=== PATIENT | male | born 1945 | race Caucasian/White ===

== ENCOUNTER 2016-09-12 18:28 | Observation (INO) | payer MEDICARE ==
[~2016-09-12] VITALS: Ht 172.7 cm; Wt 100.0 kg
[~2016-09-12 18:28] MED LIST: ALBU17I INH; ASPI81TA82 PO; ATOR40TA PO; COQ-100C2 PO; D31000TA PO; DIOV40TA PO; FENO50TA PO; IPRA.5I NEB; METO50TA PO; MULT-65 PO; OMEP20TA PO; PANT40IN3 PO; POTA550T4 PO; TRAD5TAB PO; TRAZ150T2 PO; VITACAP7 PO
[2016-09-12 18:29] VITALS: BP 170/99; PULSE 103; RESP 20; TEMP 98.5; O2SAT 98
--- NOTE | 2016-09-12 18:35 | PD ---
Physical Exam Date Seen by Provider: September 12, 2016 Time Seen by Provider: 18:32 Narrative 70 year old male presents to the emergency department for evaluation of elevated HR that occurs most often in the morning. He states that today at work he had 2 pre-syncopal episodes with associated dizziness. He reports palpitations with episodes. Patient's towel distributor is Dr. Andersen. Vital signs reviewed. Patient awaiting bed placement. Data Data Last Documented VS Vital Signs Date Time Temp Pulse Resp B/P Pulse Ox O2 Delivery O2 Flow Rate FiO2 09/12/16 18:29 98.5 103 20 170/99 98 MDM Supervised Visit with GT: Simi Pandey September 12, 2016 18:35
[2016-09-12] MEDS ORDERED: ADENOSINE IV SOLN 3 MG/ML 2 ML VIAL ONE ×2 (18:50→18:51)
[2016-09-12 18:51] VITALS: BP 104/76; PULSE 202; RESP 20; O2SAT 98
[2016-09-12] MEDS ORDERED: SODIUM CHLOR 0.9% 1000 ML INJ 1,000 ML IV ONE (19:15)
[2016-09-12 19:37] LABS: AUTOMATED NEUTROPHIL # 6.6 TH/MM3 (1.8-7.7); BASOPHIL % 0.5 % (0.0-2.0); EOSINOPHIL % 0.5 % (0.0-4.0); HEMATOCRIT 42.9 % (39.0-51.0); LYMPH % 13.9 % (9.0-44.0); LYMPHOCYTE # 1.2 TH/MM3 (1.0-4.8); MEAN CORPUSCULAR HEMOGLOBIN 23.6 PG (27.0-34.0); MEAN CORPUSCULAR HGB CONC 32.4 % (32.0-36.0); MONO % 9.4 % (0.0-8.0); NEUT % 75.7 % (16.0-70.0); PLATELET COUNT 243 TH/MM3 (150-450); RED BLOOD COUNT 5.87 MIL/MM3 (4.50-5.90); RED CELL DISTRIBUTION WIDTH 16.7 % (11.6-17.2); WHITE BLOOD COUNT 8.8 TH/MM3 (4.0-11.0)
[2016-09-12 19:43] LABS: HEMO FLAGS AUTO DIFF
[2016-09-12 19:46] LABS: BLOOD, URINE NEG (NEG); GLUCOSE,URINE NEG (NEG); KETONE, URINE NEG (NEG); NITRITE,URINE NEG (NEG); PH, URINE 7.5 (5.0-8.5)
--- NOTE | 2016-09-12 19:46 | PD ---
HPI Chief Complaint: Cardiac Complaint Time Seen by Provider: 19:09 Travel History International Travel<30 days: No Contact w/Intl Traveler<30days: No Traveled to known affect area: No History of Present Illness HPI 70-year-old male complains of Dizziness lightheadedness sweating and heart racing. Patient states the symptoms started this afternoon. Patient states that he had a near syncopal episode during the episode. Patient states that he was brought to the emergency room by his daughter and feeling better upon arrival. Patient denies any chest pain or shortness of breath. Patient denies any headache. Patient denies any visual change. Patient denies any neck pain. Patient denies abdominal pain. Patient denies any nausea vomiting diarrhea. Patient denies any fever chills. Patient denies any coughing congestion. Patient has history intermittent heart racing for the past 6 months. Patient states that usually the tachycardia lasted about 15-20 minutes and resolved completely. Patient states that the tachycardia started solution with exertion. Patient was seen by Dr. Andersen, policy advisor. Patient was advised that he had SVT. Patient also has history hypertension. Patient was given Valsartan and verapamil previously. Patient was advised to stop taking verapamil. Patient was advised to started on metoprolol 50 mg twice a day. Patient also has history of diabetes, dyslipidemia, COPD and possible atrial fibrillation with RVR. Patient denies any previous history of thyroid problem. PFSH Past Medical History Heart Rhythm Problems: Yes Cardiovascular Problems: Yes High Cholesterol: Yes Diabetes: Yes Patient Takes Glucophage: No Diminished Hearing: No Hepatitis: No Hiatal Hernia: No Hypertension: Yes Immune Disorder: No Medical other: Yes (ELEVATED CHOLESTEROL) Musculoskeletal: No Neurologic: No Respiratory: Yes (COPD) Immunizations Current: No Thyroid Disease: No Triglycerides - High: Yes Tetanus Vaccination: > 5 Years Influenza Vaccination: No Past Surgical History Cholecystectomy: Yes (DONE 2 WEEKS AGO) Genitourinary Surgery: Yes (BILAT INGUNAL HERNIAS) Neurologic Surgery: Yes (BLOOD CLOT UNDER SKULL, CRANIOTOMY) Oral Surgery: Yes (TONSILLECTOMY) Pacemaker: No Other Surgery: Yes Social History Alcohol Use: Yes (RARE) Tobacco Use: No (QUIT) Substance Use: No Allergies-Medications (Allergen,Severity, Reaction): Coded Allergies: No Known Allergies (Verified , 09/12/16) Reported Meds & Prescriptions Reported Meds & Active Scripts Active Reported B Complex (B-Complex Vitamins) 1 Cap 1 Cap PO DAILY Vitamin D3 (Cholecalciferol) 1,000 Unit Tab 1,000 Units PO DAILY Coq-10 (Coenzyme Q10 (Ubidecarenone)) 100 Mg Cap 100 Mg PO HS Fenofibrate 145 Mg Tab 145 Mg PO DAILY Ipratropium Neb (Ipratropium [place]) 0.5 Mg/2.5 Ml Amp 0.5 Mg NEB BID NEB PRN Metoprolol Tartrate 50 Mg Tab 50 Mg PO BID Multi Vitamin (Multiple Vitamin) 1 Tab Tab 1 Tab PO HS Valsartan 40 Mg Tab 40 Mg PO HS Tradjenta (Linagliptin) 5 Mg Tab 5 Mg PO DAILY Metformin (Metformin HCl) 1,000 Mg Tab 1,000 Mg PO BIDPC With meals Omeprazole 20 Mg Tab 20 Mg PO DAILY Potassium Gluconate 550 Mg Tab 550 Mg PO DAILY Trazodone (Trazodone HCl) 150 Mg Tab 75 Mg PO HS Atorvastatin (Atorvastatin Calcium) 40 Mg Tab 40 Mg PO HS Aspirin DR (Aspirin) 81 Mg Tabdr 81 Mg PO DAILY Review of Systems General / Constitutional: No: Fever Eyes: No: Visual changes HENT: Positive: Lightheadedness, No: Headaches Cardiovascular: Positive: Tachycardia, No: Chest Pain or Discomfort Respiratory: No: Shortness of Breath Gastrointestinal: No: Abdominal Pain Genitourinary: No: Dysuria Musculoskeletal: No: Pain Skin: No Rash Neurologic: No: Weakness Psychiatric: No: Depression Endocrine: No: Polydipsia Hematologic/Lymphatic: No: Easy Bruising Physical Exam Narrative GENERAL: Well-nourished, well-developed patient. SKIN: Focused skin assessment warm/dry. HEAD: Normocephalic. EYES: No scleral icterus. No injection or drainage. NECK: Supple, trachea midline. No JVD or lymphadenopathy. CARDIOVASCULAR: Tachycardia rate and rhythm without murmurs, gallops, or rubs. RESPIRATORY: Breath sounds equal bilaterally. No accessory muscle use. GASTROINTESTINAL: Abdomen soft, non-tender, nondistended. MUSCULOSKELETAL: No cyanosis, or edema. BACK: Nontender without obvious deformity. No CVA tenderness. Neurologic exam normal. Data Data Last Documented VS Vital Signs Date Time Temp Pulse Resp B/P Pulse Ox O2 Delivery O2 Flow Rate FiO2 09/12/16 18:51 202 20 104/76 98 Room Air 09/12/16 18:29 98.5 Orders Adenosine Inj (Adenocard Inj) (09/12/16 18:50) Adenosine Inj (Adenocard Inj) (09/12/16 18:51) Electrocardiogram (09/12/16 19:09) Complete Blood Count With Diff (09/12/16 19:09) Comprehensive Metabolic Panel (09/12/16 19:09) Creatine Kinase (Cpk) (09/12/16:09) Troponin I (09/12/16:) B-Type Natriuretic Peptide (09/12/16:) Prothrombin Time / Inr (Pt) (09/12/16:) Act Partial Throm Time (Ptt) (09/12/16:) Urinalysis - C+S If Indicated (09/12/16:) Thyroid Stimulating Hormone (09/12/16:) Chest, Single Ap (09/12/16:09) Iv Access Insert/Monitor (09/12/16:) Ecg Monitoring (09/12/16:) Oximetry (09/12/16:) Sodium Chlor 0.9% 1000 Ml Inj (Ns 1000 M (09/12/16 19:15) Labs Laboratory Tests Test 09/12/16 19:15 White Blood Count 8.8 TH/MM3 Red Blood Count 5.87 MIL/MM3 Hemoglobin 13.9 GM/DL Hematocrit 42.9 % Mean Corpuscular Volume 73.0 FL Mean Corpuscular Hemoglobin 23.6 PG Mean Corpuscular Hemoglobin 32.4 % Concent Red Cell Distribution Width 16.7 % Platelet Count 243 TH/MM3 Mean Platelet Volume 7.9 FL Neutrophils (%) (Auto) 75.7 % Lymphocytes (%) (Auto) 13.9 % Monocytes (%) (Auto) 9.4 % Eosinophils (%) (Auto) 0.5 % Basophils (%) (Auto) 0.5 % Neutrophils # (Auto) 6.6 TH/MM3 Lymphocytes # (Auto) 1.2 TH/MM3 Monocytes # (Auto) 0.8 TH/MM3 Eosinophils # (Auto) 0.0 TH/MM3 Basophils # (Auto) 0.0 TH/MM3 CBC Comment AUTO DIFF Differential Comment AUTO DIFF CONFIRMED Platelet Estimate NORMAL Platelet Morphology Comment NORMAL Prothrombin Time 11.4 SEC Prothromb Time International 1.0 RATIO Ratio Activated Partial 25.3 SEC Thromboplast Time Urine Color STRAW Urine Turbidity CLEAR Urine pH 7.5 Urine Specific [place] 1.003 Urine Protein TRACE mg/dL Urine Glucose (UA) NEG mg/dL Urine Ketones NEG mg/dL Urine Occult Blood NEG Urine Nitrite NEG Urine Bilirubin NEG Urine Urobilinogen LESS THAN 2.0 MG/DL Urine Leukocyte Esterase NEG Urine RBC 9 /hpf Urine WBC 2 /hpf Microscopic Urinalysis Comment CULT NOT INDICATED Sodium Level 141 MEQ/L Potassium Level 3.9 MEQ/L Chloride Level 103 MEQ/L Carbon Dioxide Level 29.0 MEQ/L Anion Gap 9 MEQ/L Blood Urea Nitrogen 14 MG/DL Creatinine 1.08 MG/DL Estimat Glomerular Filtration 68 ML/MIN Rate Random Glucose 135 MG/DL Calcium Level 9.0 MG/DL Total Bilirubin 0.3 MG/DL Aspartate Amino Transf 23 U/L (AST/SGOT) Alanine Aminotransferase 36 U/L (ALT/SGPT) Alkaline Phosphatase 40 U/L Total Creatine Kinase 85 U/L Troponin I 0.03 NG/ML B-Type Natriuretic Peptide 31 PG/ML Total Protein 6.9 GM/DL Albumin 3.5 GM/DL Thyroid Stimulating Hormone 1.070 uIU/ML 3rd [facility] Medical Decision Making Medical Screen Exam Complete: Yes Emergency Medical Condition: Yes Interpretation(s) original EKG shows SVT rate 204. Repeat EKG after carotid massage maneuver shows sinus tachycardia rate 101. Nonspecific ST-T wave change. 20:09 PM. Last Impressions Chest X-Ray 09/12/16 5269 Signed Impressions: Service Date/Time: Monday, September 12, 2016 19:38 - CONCLUSION: No acute disease. Theo Panchal MD 2008 PM. CBC within normal limit. UA is negative. 2049 p.m. CMP within normal limit. Cardiac enzymes are normal. Differential Diagnosis Differential diagnosis including SVT, V. tach, atrial fibrillation with RVR, atrial flutter with RVR, PVCs, PACs. Narrative Course 70-year-old male with tachycardia, near syncope, dizziness, diaphoresis. History of recurrent SVT in the past. patient is on metoprolol 50 mg twice a day. Carotid massage maneuver done at bedside converted patient back to sinus rhythm. I spoke with policy advisor on-call for [facility] today, Dr. Minor, advised admission and consult Dr. Andersen in a.m. Continue with all medications until seen by Dr. Andersen. Diagnosis Primary Impression: SVT (supraventricular tachycardia) Maurilio Dubois MD September 12, 2016 19:45
[2016-09-12 19:47] LABS: COMMENT (UR) CULT NOT INDICATED; CULTURE IF INDICATED CULT NOT INDICATED; URINE COLOR STRAW (YELLW/STRAW)
[2016-09-12 19:51] LABS: APTT (PATIENT) 25.3 SEC (24.3-30.1); PROTHROMBIN TIME - PATIENT 11.4 SEC (9.8-11.6)
--- NOTE | 2016-09-12 19:53 | RADRPT ---
EXAM DATE/TIME: 09/12/2016 19:38 [place] COMPARISON: CHEST SINGLE AP, February 16, 2016, 11:12. INDICATIONS : Shortness of breath. MEDICAL HISTORY : Hypertension. Diabetes mellitus type II. Chronic obstructive pulmonary disease. SURGICAL HISTORY : None. ENCOUNTER: Initial ACUITY: 1 day PAIN SCORE: 0/10 LOCATION: Bilateral chest FINDINGS: A single view of the chest demonstrates the lungs to be symmetrically aerated without evidence of mas s, infiltrate or effusion. The cardiomediastinal contours are unremarkable. Osseous structures are intact. CONCLUSION: No acute disease. Theo Panchal MD on September 12, 2016 at 19:50 Board Certified Radiologist. This report was verified electronically.
[2016-09-12] MEDS ORDERED: POTA550T2 PO (19:59)
[2016-09-12] MEDS ORDERED: MULT-135 PO (19:59)
[2016-09-12] MEDS ORDERED: ASPI81TA5 PO (19:59)
[2016-09-12] MEDS ORDERED: METF1000 PO (19:59)
[2016-09-12] MEDS ORDERED: VALS1TAB63 PO (19:59)
[2016-09-12] MEDS ORDERED: ATOR40TA16 PO (19:59)
[2016-09-12] MEDS ORDERED: TRAD5TAB PO (19:59)
[2016-09-12] MEDS ORDERED: OMEP20TA PO (19:59)
[2016-09-12] MEDS ORDERED: TRAZ150T75 PO (19:59)
[2016-09-12] MEDS ORDERED: COQ-100C2 PO (20:03)
[2016-09-12] MEDS ORDERED: METO50TA PO (20:03)
[2016-09-12] MEDS ORDERED: IPRA0.02 NEB (20:03)
[2016-09-12] MEDS ORDERED: VITA100018 PO (20:03)
[2016-09-12] MEDS ORDERED: VITACAP7 PO (20:03)
[2016-09-12] MEDS ORDERED: FENO145T2 PO (20:03)
[2016-09-12 20:14] LABS: ALKALINE PHOSPHATASE 40 U/L (45-117); ALT (GPT) 36 U/L (12-78); ANION GAP 9 MEQ/L (5-15); AST (GOT) 23 U/L (15-37); BLOOD UREA NITROGEN 14 MG/DL (7-18); CHLORIDE 103 MEQ/L (98-107); CREATINE KINASE 85 U/L (39-308); GLOMERULAR FILTRATION RATE 68 ML/MIN (>89); POTASSIUM 3.9 MEQ/L (3.5-5.1); SODIUM (NA) 141 MEQ/L (136-145); TOTAL BILIRUBIN ADULT 0.3 MG/DL (0.2-1.0)
[2016-09-12 20:15] LABS: PLATELET ESTIMATE SMEAR NORMAL (NORMAL); PLATELET MORPHOLOGY NORMAL (NORMAL); SCAN/DIFF AUTO DIFF CONFIRMED
[2016-09-12 21:09] VITALS: O2SAT 98
[2016-09-12] MEDS ORDERED: SODIUM CHLORIDE 0.9% FLUSH 10 ML FLUSH IV FLUSH PRN (21:15)
[2016-09-12] MEDS ORDERED: MAGNESIUM HYDROXIDE SUSP 30 ML CUP PO PRN (21:15)
[2016-09-12] MEDS ORDERED: ACETAMINOPHEN 325 MG TAB PO PRN ×2 (21:15)
[2016-09-12] MEDS ORDERED: SODIUM CHLORIDE 0.9% FLUSH 10 ML FLUSH IVF PRN (21:15)
[2016-09-12] MEDS ORDERED: ONDANSETRON HCL 4 MG/2 ML VIAL IV PRN (21:15)
[2016-09-12] MEDS ORDERED: ATORVASTATIN 40 MG TAB PO SCH (21:15)
[2016-09-12] MEDS ORDERED: NALOXONE HCL 0.4 MG/ML AMP IV PRN (21:15)
[2016-09-12] MEDS ORDERED: traZODone HCL 50 MG TAB PO SCH (21:15)
[2016-09-12] MEDS ORDERED: ONDANSETRON HCL 4 MG/2 ML VIAL IVP PRN (21:15)
[2016-09-12] MEDS ORDERED: TEMAZEPAM 15 MG CAP PO PRN (21:15)
[2016-09-12] MEDS ORDERED: METOPROLOL TARTRATE 50 MG TAB PO ONE (21:30)
[2016-09-12 22:04] VITALS: BP 146/79; PULSE 74; RESP 18; O2SAT 98
[2016-09-12] MEDS: 1/2 NS + KCL 20 MEQ INJ 1,000 ML IV SCH (23:02)
[2016-09-13] VITALS: BP 139/78; PULSE 80; RESP 20; TEMP 97.3; O2SAT 95
[2016-09-13 00:33] VITALS: PULSE 72
[2016-09-13 04:00] VITALS: BP 111/61; PULSE 66; RESP 18; TEMP 97.5; O2SAT 96
[2016-09-13 06:28] LABS: BASOPHIL # 0.1 TH/MM3 (0-0.2); BASOPHIL % 0.7 % (0.0-2.0); EOSINOPHIL # 0.2 TH/MM3 (0-0.4); EOSINOPHIL % 2.1 % (0.0-4.0); HEMATOCRIT 37.1 % (39.0-51.0); LYMPH % 26.2 % (9.0-44.0); LYMPHOCYTE # 2.1 TH/MM3 (1.0-4.8); MEAN CELL VOLUME 72.8 FL (80.0-100.0); MEAN CORPUSCULAR HEMOGLOBIN 23.6 PG (27.0-34.0); MEAN CORPUSCULAR HGB CONC 32.4 % (32.0-36.0); MONO % 10.2 % (0.0-8.0); NEUT % 60.8 % (16.0-70.0); PLATELET COUNT 185 TH/MM3 (150-450); RED CELL DISTRIBUTION WIDTH 16.8 % (11.6-17.2); WHITE BLOOD COUNT 8.1 TH/MM3 (4.0-11.0)
[2016-09-13 06:36] LABS: HEMO FLAGS AUTO DIFF
[2016-09-13 06:51] LABS: BICARBONATE 28.2 MEQ/L (21.0-32.0); MAGNESIUM 1.7 MG/DL (1.5-2.5); POTASSIUM 3.2 MEQ/L (3.5-5.1)
[2016-09-13] MEDS ORDERED: INSULIN ASPART SUPPLEMENTAL SCALE SQ SCH (07:00)
[2016-09-13 07:47] VITALS: O2SAT 96
[2016-09-13 08:00] VITALS: BP 156/90; PULSE 71; RESP 20; TEMP 97.9; O2SAT 95
[2016-09-13 08:59] LABS: SCAN/DIFF AUTO DIFF CONFIRMED
[2016-09-13] MEDS ORDERED: SODIUM CHLORIDE 0.9% FLUSH 10 ML FLUSH IV FLUSH SCH ×2 (09:00)
[2016-09-13] MEDS ORDERED: CHOLECALCIFEROL (VIT D3) 1000 UNIT TAB PO SCH (09:00)
[2016-09-13] MEDS ORDERED: ASPIRIN EC 81 MG TABEC PO SCH (09:00)
[2016-09-13] MEDS ORDERED: PANTOPRAZOLE SOD 20 MG DELAYED RELEASE TAB PO SCH (09:00)
[2016-09-13] MEDS ORDERED: METOPROLOL TARTRATE 50 MG TAB PO SCH (09:00)
[2016-09-13] MEDS ORDERED: metFORMIN HCL 500 MG TAB PO SCH (09:00)
[2016-09-13] MEDS ORDERED: FENOFIBRATE 145 MG TAB PO SCH (09:00)
[2016-09-13] MEDS: 1/2 NS + KCL 20 MEQ INJ 1,000 ML IV SCH (09:14)
--- NOTE | 2016-09-13 09:21 | HHI.HP ---
HPI Service [facility] Hospitalists Primary Care Physician Benjie Mcnamara MD Admission Diagnosis SVT. Resolved. Chief Complaint: Palpitations, dizziness. Travel History International Travel<30 Days: No Contact w/Intl Traveler <30 Da: No Traveled to Known Affected Are: No History of Present Illness Mr. Velazquez is a 70 y/o male with COPD, diabetes, HTN, hyperlipidemia and SVT who presented to the ED at [facility] on 09/12/16 with complaints of feeling weak and dizzy with elevated HR. He reports that these were the same symptoms he had in 02/2016 when he was previously hospitalized. At that time he was seen by Cardiology and it was felt that pt was in SVT and his medications were changed from oral Cardizem to Metoprolol 50mg Q12H and his HR remained stable. 2D echo ( 02/17/2016) noted wall thickness was normal, estimated EF 55% to 65%. He reports that since that hospitalization he has had a few similar episodes where he gets dizzy and weak with palpitations. Typically he will sit a rest for about 15 minutes and the symptoms resolve. Yesterday he had two episodes within 30 minutes which prompted him to come to the ED for further evaluation. His original EKG shows SVT at a rate 204. Repeat EKG after carotid massage maneuver shows sinus tachycardia rate [address]-T wave change. Pt has been in NSR since the ED. No reported cough, SOB, congestion, fevers or chills. Denies any abd pain, nausea/vomiting, constipation, or melena. Review of Systems Constitutional: COMPLAINS OF: Dizziness, DENIES: Fever, Chills Eyes: DENIES: Vision loss Ears, nose, mouth, throat: DENIES: Hearing loss Respiratory: DENIES: Cough, Shortness of breath Cardiovascular: COMPLAINS OF: Palpitations, DENIES: Chest pain, Dyspnea on Exertion, Lower Extremity Edema Gastrointestinal: DENIES: Abdominal pain, Diarrhea, Nausea Genitourinary: DENIES: Hematuria, Dysuria Integumentary: DENIES: Rash Neurologic: DENIES: Headache Psychiatric: DENIES: Confusion Past Family Social History Past Medical History HTN Sinus tachycardia Hx of syncope and abnormal tilt table test Hyperlipidemia COPD Diabetes mellitus GERD CKD Depression Hx of tobacco use Hx of intracranial bleeding 2D echo (2012) - Normal systolic function with EF 55-60% - PA peak pressure 32mmHg Past Surgical History Craniotomy with clot evacuation Cholecystectomy Bilateral inguinal hernia repair Tonsillectomy Reported Medications B Complex (B-Complex Vitamins) 1 Cap 1 Cap PO DAILY Vitamin D3 (Cholecalciferol) 1,000 Unit Tab 1,000 Units PO DAILY Coq-10 (Coenzyme Q10 (Ubidecarenone)) 100 Mg Cap 100 Mg PO HS Fenofibrate 145 Mg Tab 145 Mg PO DAILY Ipratropium Neb (Ipratropium [place]) 0.5 Mg/2.5 Ml Amp 0.5 Mg NEB BID NEB PRN Metoprolol Tartrate 50 Mg Tab 50 Mg PO BID Multi Vitamin (Multiple Vitamin) 1 Tab Tab 1 Tab PO HS Valsartan 40 Mg Tab 40 Mg PO HS Tradjenta (Linagliptin) 5 Mg Tab 5 Mg PO DAILY Metformin (Metformin HCl) 1,000 Mg Tab 1,000 Mg PO BIDPC With meals Omeprazole 20 Mg Tab 20 Mg PO DAILY Potassium Gluconate 550 Mg Tab 550 Mg PO DAILY Trazodone (Trazodone HCl) 150 Mg Tab 75 Mg PO HS Atorvastatin (Atorvastatin Calcium) 40 Mg Tab 40 Mg PO HS Aspirin DR (Aspirin) 81 Mg Tabdr 81 Mg PO DAILY Allergies: Coded Allergies: No Known Allergies (Verified , 09/12/16) Family History Father from prostate cancer Mother for CHF Social History Hx of tobacco use, smoked 1-1.5ppd x 35 years, quit in 2004 Occasionally drinks alcohol Pt is , lives locally Worked for a car dealership Physical Exam Vital Signs Vital Signs Date Time Temp Pulse Resp B/P Pulse Ox O2 Delivery O2 Flow Rate FiO2 09/13/16 08:00 97.9 71 20 156/90 95 Automatic Cuff 09/13/16 04:00 97.5 66 18 111/61 96 09/13/16 00:33 72 09/13/16 00:00 97.3 80 20 139/78 95 09/12/16 22:04 74 18 146/79 98 Room Air 09/12/16 21:09 98 09/12/16 18:51 202 20 104/76 98 Room Air 09/12/16 18:29 98.5 103 20 170/99 98 Physical Exam GENERAL: This is a well-nourished, well-developed patient, in no apparent distress. HEENT: Atraumatic. Normocephalic. No temporal or scalp tenderness. No scleral icterus. Airway patent. NECK: Trachea midline, supple, nontender. CARDIO: Regular. RESP: CTA bilaterally. No wheezes, rales, or rhonchi. ABD: +BS, soft, non-tender, nondistended. EXT: Extremities without clubbing, cyanosis, or edema. NEURO: Awake and alert. Motor and sensory grossly within normal limits. Normal speech. Laboratory Laboratory Tests Test 09/12/16 09/13/16 19:15 05:38 White Blood Count 8.8 8.1 Red Blood Count 5.87 5.10 Hemoglobin 13.9 12.0 Hematocrit 42.9 37.1 Mean Corpuscular Volume 73.0 72.8 Mean Corpuscular Hemoglobin 23.6 23.6 Mean Corpuscular Hemoglobin 32.4 32.4 Concent Red Cell Distribution Width 16.7 16.8 Platelet Count 243 185 Mean Platelet Volume 7.9 7.7 Neutrophils (%) (Auto) 75.7 60.8 Lymphocytes (%) (Auto) 13.9 26.2 Monocytes (%) (Auto) 9.4 10.2 Eosinophils (%) (Auto) 0.5 2.1 Basophils (%) (Auto) 0.5 0.7 Neutrophils # (Auto) 6.6 5.0 Lymphocytes # (Auto) 1.2 2.1 Monocytes # (Auto) 0.8 0.8 Eosinophils # (Auto) 0.0 0.2 Basophils # (Auto) 0.0 0.1 CBC Comment AUTO DIFF AUTO DIFF Differential Comment AUTO DIFF AUTO DIFF CONFIRMED CONFIRMED Platelet Estimate NORMAL Platelet Morphology Comment NORMAL Prothrombin Time 11.4 Prothromb Time International 1.0 Ratio Activated Partial 25.3 Thromboplast Time Urine Color STRAW Urine Turbidity CLEAR Urine pH 7.5 Urine Specific [place] 1.003 Urine Protein TRACE Urine Glucose (UA) NEG Urine Ketones NEG Urine Occult Blood NEG Urine Nitrite NEG Urine Bilirubin NEG Urine Urobilinogen LESS THAN 2.0 Urine Leukocyte Esterase NEG Urine RBC 9 Urine WBC 2 Microscopic Urinalysis Comment CULT NOT INDICATED Sodium Level 141 143 Potassium Level 3.9 3.2 Chloride Level 103 106 Carbon Dioxide Level 29.0 28.2 Anion Gap 9 9 Blood Urea Nitrogen 14 14 Creatinine 1.08 0.79 Estimat Glomerular Filtration 68 97 Rate Random Glucose 135 104 Calcium Level 9.0 8.4 Total Bilirubin 0.3 Aspartate Amino Transf 23 (AST/SGOT) Alanine Aminotransferase 36 (ALT/SGPT) Alkaline Phosphatase 40 Total Creatine Kinase 85 Troponin I 0.03 B-Type Natriuretic Peptide 31 Total Protein 6.9 Albumin 3.5 Thyroid Stimulating Hormone 1.070 3rd Gen Magnesium Level 1.7 Result Diagram: 09/13/16 0538 09/13/16 0538 Imaging Last Impressions Chest X-Ray 09/12/16 1909 Signed Impressions: Service Date/Time: Monday, September 12, 2016 19:38 - CONCLUSION: No acute disease. Theo Panchal MD Septic Shock Reassessment Heart: Regular rate and rhythm Lungs: Clear Skin: Warm Assessment and Plan Problem List: (1) SVT (supraventricular tachycardia) Status: Acute Plan: - Pt is a 70 y/o male with hx of SVT who was admitted on 09/12/16 with episodic palpitations, dizziness and weakness. - His original EKG in the ED showed SVT at a rate 204. Repeat EKG after carotid massage showed sinus tachycardia rate [address]-T wave change. Pt has been in NSR since the ED. - Metoprolol 50mg Q12H was resumed in the ED. - Cardiology was consulted and pt was seen by Dr. Andersen this morning and he has recommended continuing Metoprolol 50mg po Q12H and adding Digoxin 0.25mg po daily. Cardiology has cleared the patient for discharge. - Pt will need to followup with [facility] Cardiology next week - He should minimize caffeine intake - Cardiology discussed Valsalva maneuvers and using cold water to break these prolonged episodes when they occur. - Pt will resume his other home medications. - Pt will followup with his PCP, Dr. Mcnamara, in 1 week (2) HTN (hypertension) Status: Chronic Plan: - Cont. home meds (3) Diabetes mellitus Status: Chronic Plan: - Cont. home meds (4) COPD (chronic obstructive pulmonary disease) Status: Chronic Plan: - Cont. home meds Assessment and Plan Patient examined. Assessment and plan formulated with Sadaf ALMAGUER I agree with the above. Problem Qualifiers (1) Diabetes mellitus: Sadaf Hooper September 13, 2016 09:21 Rick Zimmerman DO September 15, 2016 09:48
--- NOTE | 2016-09-13 09:28 | MB ---
cc: NATALIA BRITO MD DATE OF CONSULTATION: 09/13/2016 HISTORY OF PRESENT ILLNESS This is a 70-year-old gentleman who has a history of supraventricular tachycardia. He was at his job yesterday when he became lightheaded and dizzy. He noted that his heart rate was very rapid. This persisted for approximately 15-20 minutes and when ___ he then spontaneously converted back to regular sinus rhythm. His daughter insisted that he come to the hospital and at the hospital he apparently had a recurrence of his SVT, which then converted back to sinus rhythm. Since he was previously hospitalized last February for SVT, and at that time was put on metoprolol 50 mg twice daily. Since that time he has noted that he has had four episodes of what he feels are rapid heart beats, although they are very short-lived and otherwise asymptomatic. No chest pain has been present. Denies any shortness of breath and otherwise has felt well. He has been noncompliant with his medical regimen. PAST MEDICAL HISTORY Past medical history is otherwise significant for type 2 diabetes and hyperlipidemia. MEDICATIONS Medications at home have included: 1. Metoprolol 50 twice daily. 2. Fenofibrate 145 mg daily. 3. Metformin 1000 twice daily. 4. Tradjenta 5 mg daily. 5. Valsartan 40 mg at bedtime. 6. Potassium 10 mEq daily. 7. Atorvastatin 40 mg at bedtime. 8. Aspirin 81 mg daily. 9. Co Q-10. 10. Vitamin D. 11. Vitamin B. ALLERGIES None. SOCIAL HISTORY The patient rarely drinks alcohol. He is a former smoker but has quit for some years. He does not use recreational drugs. REVIEW OF SYSTEMS Otherwise unremarkable. PHYSICAL EXAMINATION GENERAL: He is awake and alert. He is in no distress. VITAL SIGNS: Blood pressure is 120/70, pulse is 70 and regular. NECK: There is no neck vein distension. Carotids are normal. LUNGS: Clear. CARDIOVASCULAR: Exam reveals regular rate and rhythm. No murmur. No gallop is noted. EXTREMITIES: Reveal no edema. Peripheral pulses are intact. LABORATORY DATA Laboratory examination reveals a normal BNP and troponin. H&H on admission was normal at 13.9, followup was 12.0, probably secondary to some dilution and also his potassium was somewhat low on second determination at 3.2, again probably secondary to dilution and his potassium is being replenished. ASSESSMENT The patient has had SVT which has since resolved. He is currently asymptomatic and his laboratory examination is otherwise unremarkable. In view of his recurrent episodes which seem to occur approximately once a month, I have suggested that we add 0.25 of digoxin once a day to his regimen and he is agreeable to this. We will otherwise continue his metoprolol. Will plan on seeing him back in clinic next week. We have again discussed Valsalva maneuvers as well as using cold water to see if he can break these episodes when they are prolonged. He notes that he is aware of those but did not try those yesterday and we have reinforced that education. MD BLESSING Love/LARISSA /7:45 AM /9:05 AM
[2016-09-13 09:30] VITALS: PULSE 65
[2016-09-13] MEDS ORDERED: DIGO0.259 PO (09:56)
--- NOTE | 2016-09-13 09:58 | HHI.DCPOC ---
Discharge Care Plan Diagnosis: (1) SVT (supraventricular tachycardia) (2) HTN (hypertension) (3) Diabetes mellitus (4) COPD (chronic obstructive pulmonary disease) Goals to Promote Your Health * To prevent worsening of your condition and complications * To maintain your health at the optimal level Directions to Meet Your Goals Take your medications as prescribed Follow your dietary instruction Follow activity as directed Keep your appointments as scheduled Take your immunizations and boosters as scheduled If your symptoms worsen call your PCP, if no PCP go to Urgent Care Center or Emergency Room Smoking is Dangerous to Your Health. Avoid second hand smoke Call the 24-hour hour crisis hotline for domestic abuse at Sadaf Hooper September 13, 2016 09:58 Rick Zimmerman DO September 15, 2016 09:48
[2016-09-13] MEDS ORDERED: DIGOXIN 0.25 MG TAB PO ONE (10:00)
[2016-09-13] MEDS ORDERED: POTASSIUM CHLORIDE 10 MEQ CAP PO SCH (12:00)
--- NOTE | 2016-09-13 16:20 | EKG ---
Date Performed: 09/12/2016 Time Performed: 18:49:03 PTAGE: 70 years EKG: SUPRAVENTRICULAR TACHYCARDIA WITH LVH, WHICH IS NEW COMPARED TO PREVIOUS ABNORMAL ECG PREVIOUS TRACING 02/16/2016 12.14.47 DOCTOR: Jim Johnston Interpretating Date/Time 09/13/2016 16:19:38
--- NOTE | 2016-09-13 16:20 | EKG ---
Date Performed: 09/12/2016 Time Performed: 18:55:12 PTAGE: 70 years EKG: SINUS TACHYCARDIA LEFT ANTERIOR FASCICULAR BLOCK LEFT VENTRICULAR HYPERTROPHY AND ST-T WEBSTER GE ABNORMAL ECG PREVIOUS TRACING : 09/12/2016 18.49 Compared to previous tracing, SVT has resolved. DOCTOR: Jim Johnston Interpretating Date/Time 09/13/2016 16:20:00
[2016-09-13] MEDS ORDERED: VALSARTAN 40 MG TAB PO SCH (21:00)
[2016-09-13] MEDS ORDERED: MULTIVITAMIN TAB PO SCH (21:00)
== END 2016-09-13 11:01 | disposition home or self-care (01) ==
LOC: NEPE 18:28 → OBSVTOIN 21:30 → NEDA 21:30 → INTOOBSV 21:30 → N04A 23:53
PROVIDERS: ADMIT Hospitalist; ATTEND Hospitalist
DX: I47.1 Supraventricular tachycardia (principal); R55 Syncope and collapse; R42 Dizziness and giddiness; R00.2 Palpitations; R61 Generalized hyperhidrosis; N18.9 Chronic kidney disease, unspecified; I12.9 Hypertensive chronic kidney disease with stage 1 through stage 4 chronic kidney disease, or unspecified chronic kidney disease; J44.9 Chronic obstructive pulmonary disease, unspecified; E78.5 Hyperlipidemia, unspecified; E11.22 Type 2 diabetes mellitus with diabetic chronic kidney disease; E78.00 Pure hypercholesterolemia, unspecified; Z79.84 Long term (current) use of oral hypoglycemic drugs; Z91.19 Patient's noncompliance with other medical treatment and regimen; Z87.891 Personal history of nicotine dependence; K21.9 Gastro-esophageal reflux disease without esophagitis; R94.31 Abnormal electrocardiogram [ECG] [EKG]
CPT/HCPCS: 71010; 80048; 80053; 81001; 82550; 82948; 83735; 83880; 84443; 84484; 85025; 85610; 85730; 93005; 99285; G0378; J0153; J7030

== ENCOUNTER 2017-07-19 21:30 | Emergency (ER) | payer MEDICARE ==
[~2017-07-19] VITALS: Ht 172.7 cm; Wt 101.6 kg
[~2017-07-19 21:30] MED LIST changes: -ALBU17I INH; -ASPI81TA82 PO; -ATOR40TA PO; +ATOR40TA16 PO; -D31000TA PO; +DIGO0.259 PO; -DIOV40TA PO; +ECASA81 PO; +FENO145T2 PO; -FENO50TA PO; -IPRA.5I NEB; +IPRA0.02 NEB; +METF1000 PO; +MULT-135 PO; -MULT-65 PO; -OMEP20TA PO; +OMEP20TA93 PO; -PANT40IN3 PO; +POTA550T2 PO; -POTA550T4 PO; -TRAZ150T2 PO; +TRAZ150T75 PO; +VALS1TAB63 PO; +VITA100018 PO
[2017-07-19 21:44] VITALS: BP 176/84; PULSE 74; RESP 14; TEMP 97.5; O2SAT 95
--- NOTE | 2017-07-19 22:16 | PD ---
HPI Chief Complaint: Fall Time Seen by Provider: 22:03 Travel History International Travel<30 days: No Contact w/Intl Traveler<30days: No Traveled to known affect area: No History of Present Illness HPI 71-year-old male complains of headache, neck pain, upper and low back pain. Patient fell backwards and hit the back of the head this evening. Patient denies loss of consciousness. Patient denies any visual change. Patient denies any nausea vomiting. Patient denies any memory problem. Family members state patient does not have any problem with repeating questions. Patient complains of mild aching pain to the neck area, moderate pain on upper back and mild low back pain. Patient denies any chest pain or shortness of breath. Patient denies abdominal pain. Patient denies any extremity injury. Patient denies any focal weakness or numbness of the extremity. PFSH Past Medical History Atrial Fibrillation: Yes Heart Rhythm Problems: Yes Cancer: No Cardiovascular Problems: Yes (A Fib, HTN) High Cholesterol: Yes COPD: Yes Diabetes: Yes (type 2 ) Patient Takes Glucophage: Yes Diminished Hearing: No Endocrine: Yes Genitourinary: No Hepatitis: No Hiatal Hernia: No Hypertension: Yes Immune Disorder: No Musculoskeletal: No Neurologic: No Psychiatric: No Respiratory: Yes (COPD, bronchitis) Immunizations Current: No Thyroid Disease: No Triglycerides - High: Yes Tetanus Vaccination: > 5 Years Influenza Vaccination: No Past Surgical History Cholecystectomy: Yes Genitourinary Surgery: Yes (BILAT INGUNAL HERNIAS) Neurologic Surgery: Yes (BLOOD CLOT UNDER SKULL, CRANIOTOMY) Oral Surgery: Yes (TONSILLECTOMY) Pacemaker: No Other Surgery: Yes Social History Alcohol Use: Yes (RARE) Tobacco Use: No Substance Use: No Allergies-Medications (Allergen,Severity, Reaction): Coded Allergies: No Known Allergies (Verified , 09/12/16) Reported Meds & Prescriptions Reported Meds & Active Scripts Active Digox (Digoxin) 0.25 Mg Tab 0.25 Mg PO DAILY Reported Coq-10 (Coenzyme Q10 (Ubidecarenone)) 50 Mg Cap 1 Tab PO DAILY Multi Vitamin Daily (Multiple Vitamin) 1 Tab Tab 1 Tab PO DAILY Potassium Gluconate 550 Mg (90 Mg) Tab 3 Tab PO BID Trazodone (Trazodone HCl) 50 Mg Tab 75 Mg PO HS Prednisone 10 Mg Tab 10 Mg PO BID Cefprozil 500 Mg Tab 500 Mg PO BID Diclofenac Sodium DR (Diclofenac Sodium) 75 Mg Tabdr 75 Mg PO BID B Complex (B-Complex Vitamins) 1 Cap 1 Cap PO DAILY Fenofibrate 145 Mg Tab 145 Mg PO DAILY Ipratropium Neb (Ipratropium [place]) 0.5 Mg/2.5 Ml Amp 0.5 Mg NEB BID NEB PRN Metoprolol Tartrate 50 Mg Tab 50 Mg PO BID Valsartan 40 Mg Tab 40 Mg PO HS Tradjenta (Linagliptin) 5 Mg Tab 5 Mg PO DAILY Metformin (Metformin HCl) 1,000 Mg Tab 1,000 Mg PO BIDPC With meals Omeprazole 20 Mg Tab 20 Mg PO DAILY Atorvastatin (Atorvastatin Calcium) 40 Mg Tab 40 Mg PO HS Aspirin DR (Aspirin) 81 Mg Tabdr 81 Mg PO DAILY Review of Systems General / Constitutional: No: Fever Eyes: No: Visual changes HENT: Positive: Headaches, Neck Pain Cardiovascular: No: Chest Pain or Discomfort Respiratory: No: Shortness of Breath Gastrointestinal: No: Abdominal Pain Genitourinary: No: Dysuria Musculoskeletal: No: Pain Skin: No Rash Neurologic: No: Weakness Psychiatric: No: Depression Endocrine: No: Polydipsia Hematologic/Lymphatic: No: Easy Bruising Physical Exam Narrative GENERAL: Well-nourished, well-developed patient. SKIN: Focused skin assessment warm/dry. HEAD: Normocephalic. Mild tenderness on palpation superior area of the scalp. EYES: No scleral icterus. No injection or drainage. Pupils 2 mm equal reactive. NECK: Supple, trachea midline. No JVD or lymphadenopathy. No tenderness on palpation of the neck area. CARDIOVASCULAR: Regular rate and rhythm without murmurs, gallops, or rubs. RESPIRATORY: Breath sounds equal bilaterally. No accessory muscle use. GASTROINTESTINAL: Abdomen soft, non-tender, nondistended. MUSCULOSKELETAL: No cyanosis, or edema. BACK: Mild tenderness on palpation paraspinal area of thoracic and lumbar spine , without obvious deformity. No CVA tenderness. Neurologic exam normal. Data Data Last Documented VS Vital Signs Date Time Temp Pulse Resp B/P (MAP) Pulse Ox O2 Delivery O2 Flow Rate FiO2 07/19/17 21:44 97.5 74 14 176/84 (114) [address] Brain W/O Iv Contrast(Rout) (07/19/17 22:09) Spine, Cervical - Ltd (Ap&Lat) (07/19/17 22:09) Spine, Thoracic-Ap/Lat/Sw(3vw) (07/19/17 22:09) Spine, Lumbar - Ltd (Ap & Lat) (07/19/17 22:09) MDM Medical Decision Making Medical Screen Exam Complete: Yes Emergency Medical Condition: Yes Differential Diagnosis Differential diagnosis including head injury, neck injury, back injury. Narrative Course 71-year-old male with headache, neck pain, upper low back pain. Status post fall this evening. Diagnosis Primary Impression: Closed head injury Qualified Codes: S09.90XA - Unspecified injury of head, initial encounter Additional Impressions: Cervical strain Qualified Codes: S16.1XXA - Strain of muscle, fascia and tendon at neck level , initial encounter Strain of thoracic spine Qualified Codes: S29.019A - Strain of muscle and tendon of unspecified wall of thorax, initial encounter Lumbar strain Qualified Codes: S39.012A - Strain of muscle, fascia and tendon of lower back , initial encounter Patient Instructions: General Instructions Additional Instructions: Head trauma instructions given. Take medication as needed for pain. Follow-up with orthopedist. Return if worse. Med/Other Pt SpecificInfo: Prescription(s) given Scripts Methocarbamol (Robaxin) 750 Mg Tab 750 MG PO QID for Muscle Spasm, #40 TAB 0 Refills Prov: Maurilio Dubois MD 07/19/17 Disposition: 01 DISCHARGE HOME Condition: Stable Maurilio Dubois MD Jul 19, 2017 22:16
[2017-07-19] MEDS ORDERED: PRED10 PO (22:17)
[2017-07-19] MEDS ORDERED: MULT1TAB46 PO (22:17)
[2017-07-19] MEDS ORDERED: POTA2.5T PO (22:17)
[2017-07-19] MEDS ORDERED: COQ-50CA2 PO (22:17)
[2017-07-19] MEDS ORDERED: DICL75TA PO (22:17)
[2017-07-19] MEDS ORDERED: CEFP500T PO (22:17)
[2017-07-19] MEDS ORDERED: TRAZ50TA12 PO (22:17)
--- NOTE | 2017-07-19 23:03 | RADRPT ---
EXAM DATE/TIME: 07/19/2017 22:29 [facility] COMPARISON: No previous studies available for comparison. INDICATIONS : Cervical spine pain post fall backwards from chair. MEDICAL HISTORY : Hypertension. Diabetes mellitus type II. Chronic obstructive pulmonary disease. SURGICAL HISTORY : None. ENCOUNTER: Initial ACUITY: 1 day PAIN SCORE: 5/10 LOCATION: Bilateral neck FINDINGS: No fracture or subluxation of the cervical spine. Vertebral bodies have normal height. No prevertebra l soft tissue swelling. Moderate degenerative disc disease with uncovertebral and facet osteoarthritis seen at C5/C6 and C6-C 7. CONCLUSION: No fracture or subluxation of the cervical spine. Theo Padilla MD on July 19, 2017 at 23:00 Board Certified Radiologist. This report was verified electronically.
--- NOTE | 2017-07-19 23:04 | RADRPT ---
EXAM DATE/TIME: 07/19/2017 22:29 [facility] COMPARISON: No previous studies available for comparison. INDICATIONS : Thoracic spine pain post fall backwards from chair. MEDICAL HISTORY : Hypertension. Diabetes mellitus type II. Chronic obstructive pulmonary disease. SURGICAL HISTORY : None. ENCOUNTER: Initial ACUITY: 1 day PAIN SCORE: 5/10 LOCATION: Bilateral thoracic spine FINDINGS: There is normal alignment of the thoracic vertebral bodies. Vertebral body height is maintained. No evidence of fracture or subluxation. Pedicles are intact at all levels. The paravertebral reflecti ons are not thickened. Mild multilevel disc space narrowing in the mid and lower thoracic spine. CONCLUSION: No evidence of acute fracture or subluxation of the thoracic spine. Theo Padilla MD on July 19, 2017 at 23:02 Board Certified Radiologist. This report was verified electronically.
--- NOTE | 2017-07-19 23:05 | RADRPT ---
EXAM DATE/TIME: 07/19/2017 22:29 [facility] COMPARISON: No previous studies available for comparison. INDICATIONS : Lumbar spine pain post fall backwards from chair. MEDICAL HISTORY : Hypertension. Diabetes mellitus type II. Chronic obstructive pulmonary disease. SURGICAL HISTORY : None. ENCOUNTER: Initial ACUITY: 1 day PAIN SCORE: 5/10 LOCATION: Bilateral lumbar spine FINDINGS: No fracture or subluxation of the lumbar spine. Vertebral bodies have normal height. Moderate disc space narrowing and bilateral facet osteoarthritis seen at L3/L4, L4/L5 and L5/S1. CONCLUSION: Intact lumbar spine. Moderate severity mid and lower lumbar degenerative changes as above. Theo Padilla MD on July 19, 2017 at 23:03 Board Certified Radiologist. This report was verified electronically.
[2017-07-19] MEDS ORDERED: ROBA750T PO (23:08)
[2017-07-19 23:16] VITALS: BP 162/78
--- NOTE | 2017-07-19 23:24 | RADRPT ---
EXAM DATE/TIME: 07/19/2017 22:43 [facility] COMPARISON: No previous studies available for comparison. INDICATIONS : Trauma. Fall. RADIATION DOSE: 58.33 CTDIvol (mGy) MEDICAL HISTORY : Diabetes mellitus type 2. Chronic obstructive pulmonary disease. Hypertension. SURGICAL HISTORY : Craniotomy. ENCOUNTER: Initial ACUITY: 1 day PAIN SCALE: 3/10 LOCATION: Bilateral occipital TECHNIQUE: Multiple contiguous axial images were obtained of the head. Using automated exposure control and adj ustment of the mA and/or kV according to patient size, radiation dose was kept as low as reasonably a chievable to obtain optimal diagnostic quality images. DICOM format image data is available electro nically for review and comparison. FINDINGS: CEREBRUM: The ventricles are normal for age. No evidence of midline shift, mass lesion, hemorrhage or acute in farction. No extra-axial fluid collections are seen. POSTERIOR FOSSA: The cerebellum and brainstem are intact. The 4th ventricle is midline. The cerebellopontine angle i s unremarkable. EXTRACRANIAL: The visualized portion of the orbits is intact. SKULL: The calvaria is intact. No evidence of skull fracture. CONCLUSION: Negative exam. Carlos Bhakta MD on July 19, 2017 at 23:22 Board Certified Radiologist. This report was verified electronically.
== END 2017-07-19 23:30 | disposition home or self-care (01) ==
LOC: PHEFT 21:30
DX: S09.90XA Unspecified injury of head, initial encounter (principal); S16.1XXA Strain of muscle, fascia and tendon at neck level, initial encounter; S29.019A Strain of muscle and tendon of unspecified wall of thorax, initial encounter; S39.012A Strain of muscle, fascia and tendon of lower back, initial encounter; W18.39XA Other fall on same level, initial encounter; I10 Essential (primary) hypertension; E11.9 Type 2 diabetes mellitus without complications; I48.91 Unspecified atrial fibrillation; E78.5 Hyperlipidemia, unspecified; J44.9 Chronic obstructive pulmonary disease, unspecified; Z79.84 Long term (current) use of oral hypoglycemic drugs
CPT/HCPCS: 70450; 72040; 72072; 72100; 99284

== ENCOUNTER → 2017-08-30 | Outpatient (CLI) | payer MEDICARE ==
[~2017-08-30] MED LIST changes: +CEFP500T PO; -COQ-100C2 PO; +COQ-50CA2 PO; +DICL75TA PO; -MULT-135 PO; +MULT1TAB46 PO; +POTA2.5T PO; -POTA550T2 PO; +POTA595T PO; +PRED10 PO; +ROBA750T PO; -TRAZ150T75 PO; +TRAZ50TA12 PO; -VITA100018 PO
== END ==
LOC: CPRE 08:24
PROVIDERS: ATTEND Orthopaedic Surgery
DX: M17.12 Unilateral primary osteoarthritis, left knee (principal)

== ENCOUNTER 2017-09-11 05:14 | Inpatient (IN) | payer MEDICARE ==
[~2017-09-11] VITALS: Ht 172.7 cm; Wt 99.4 kg
[~2017-09-11 05:14] MED LIST changes: -POTA595T PO
[2017-09-11] MEDS ORDERED: CHLORHEXIDINE GLUCONATE 4% SOLN 120 ML BTL TOPICAL SCH (05:45)
[2017-09-11] MEDS ORDERED: VANCOMYCIN 1000 MG/NS 250 ML (for <70 kg) IV SCH ×2 (05:45)
[2017-09-11] MEDS ORDERED: METOPROLOL TARTRATE 25 MG TAB PO PRN (05:45)
[2017-09-11] MEDS ORDERED: DEXAMETHASONE SOD PHOS 20 MG/5 ML VIAL IV PUSH ONE (05:45)
[2017-09-11] MEDS ORDERED: SODIUM CHLORID 0.9% 500 ML IV PRN (05:45)
[2017-09-11] MEDS ORDERED: POVIDONE IODINE 7.5% SCRUB 118 ML BOTTLE TOPICAL SCH (05:45)
[2017-09-11] MEDS ORDERED: ceFAZolin 2 GM PREMIX 50 ML IV SCH (05:45)
[2017-09-11] MEDS ORDERED: LACTATED RINGER'S 1000 ML IV PRN (05:45)
[2017-09-11] MEDS ORDERED: CHLORHEXIDINE GLUCONATE 2 % 1 PACK (2 CLOTHS) TOPICAL PRN (05:45)
[2017-09-11] MEDS ORDERED: POVIDONE IODINE 5% (ANTISEPSIS KIT) 4 APPLICATIONS EACH NARE PRN (05:45)
[2017-09-11] MEDS ORDERED: POTA595T PO ×2 (06:37)
[2017-09-11 06:45] VITALS: PULSE 74
[2017-09-11] MEDS ORDERED: VANCOMYCIN 1 GM/200 ML INJ 200 ML IV ONE (06:56)
[2017-09-11] MEDS ORDERED: FAT EMULSION 20% INJ 0 ML ONE (06:57)
--- NOTE | 2017-09-11 06:57 | HHI.DCPOC ---
Discharge Care Plan Diagnosis: (1) Primary localized osteoarthrosis, lower leg (2) Status post total knee replacement, left Your Health Problems Are: Difficulty with ADL Goals to Promote Your Health * To prevent worsening of your condition and complications * To maintain your health at the optimal level Directions to Meet Your Goals Take your medications as prescribed Follow your dietary instruction Follow activity as directed Keep your appointments as scheduled Take your immunizations and boosters as scheduled If your symptoms worsen call your PCP, if no PCP go to Urgent Care Center or Emergency Room Smoking is Dangerous to Your Health. Avoid second hand smoke Call the 24-hour hour crisis hotline for domestic abuse at Demarcus Jenkins September 11, 2017 06:57
--- NOTE | 2017-09-11 06:58 | HHI.FF ---
Face to Face Verification Diagnosis: (1) Status post total knee replacement, left (2) Primary localized osteoarthrosis, lower leg Physical Therapy Gait training, Transfer training, bed to chair Knee: Total knee Left LE Weight Bearing: WB as tolerated Left LE Range of Motion: Active ROM Nursing Nursing: Jhonatan pitts Dressing Changes: Do not change dressing Additional Instructions First dressing change in the office I have seen patient Evgeny Velazquez on 09/11/17. My clinical findings support the need for the requested home health care services because: Limited ability to care for self High risk of falls I certify that my clinical findings support that this patient is homebound because: Post-op weakness Unsteady gait/balance Demarcus Jenkins September 11, 2017 06:58
[2017-09-11] MEDS ORDERED: WALKER WHEELS/F1 MIS (07:00)
[2017-09-11] MEDS ORDERED: COMMODE 3-IN-11 MIS (07:00)
[2017-09-11] MEDS ORDERED: CPMMACHINE (07:00)
[2017-09-11] MEDS ORDERED: GENTAMICIN SULFATE 80 MG/2 ML VIAL ONE (07:32)
[2017-09-11] MEDS ORDERED: BUPIVACAINE LIPOSOME PF 1.3% 20 ML VIAL ONE (07:39)
[2017-09-11] MEDS ORDERED: methylPREDNISolone SOD SUCC 125 MG/2 ML VIAL ONE (07:39)
[2017-09-11] MEDS ORDERED: BUPIVACAINE HCL PF 0.25% 30 ML VIAL ONE (07:39)
[2017-09-11] MEDS ORDERED: ACETAMINOPHEN 1000 MG/100 ML 100 ML IV ONE (08:00)
[2017-09-11] MEDS ORDERED: TRANEXAMIC ACID INJ 994 MG in SODIUM CHLORIDE 0.9% INJ 100 ML IV SCH ×2 (08:30→11:30)
[2017-09-11] MEDS ORDERED: ROPIVACAINE PERI-ARTICULAR INJECTION. P-ARTICULR SCH ×5 (08:30)
[2017-09-11] MEDS ORDERED: RESP: IPRATROPIUM 0.5 MG/2.5 ML NEB NEB PRN (10:30)
--- NOTE | 2017-09-11 10:34 | PD.OP ---
cc: Gokul Rangel MD Operative Report Date of Surgery: September 11, 2017 Preoperative Diagnosis: Left knee severe arthritis Postoperative Diagnosis: Same Procedure: Left total knee arthroplasty Anesthesia: General and abductor canal block Surgeon: Gokul Rangel Advertising Assistant(s): VALERY Anders The surgical procedure was assisted by my Advanced Registered Nurse Practitioner. My SUPERVISOR COVERING [employer] LINING presence was necessary throughout this case for the manipulation and positioning of the surgical extremity. My SUPERVIS[employer]ING was assisting me throughout the duration of this procedure. The skill set of an Advance Registered Nurse Practitioner was medically necessary to complete this procedure. During the surgical case, the surgical territory manager was working at the back table and the Advance Registered Nurse Practitioner was directly assisting me. Operation and Findings: IMPLANTS: DePuy Attune: Patella: size 35. Femur, posterior stabilized size 7. Tibia, rotating platform size 6. Tibial insert, rotating platform, posterior stabilized size 6 mm thickness. ESTIMATED BLOOD LOSS: 75 cc TOURNIQUET TIME: 41 minutes at 250 mmHg pressure. JUSTIFICATION FOR PROCEDURE: The patient has end-stage osteoarthritis to the knee. There is an attached conservative measures pathway form in the chart that describes the nonoperative measures that were undertaken prior to consideration of surgical management. The patient understood the risks and benefits of surgical management. See my office notes for further details PROCEDURE: The patient was brought back to the operative theatre. Adequate anesthesia was obtained. The patient received intravenous vancomycin and Ancef. The lower extremity was prepped and draped in the usual sterile fashion.The leg was exsanguinated, the tourniquet was raised. A standard anterior incision was performed followed by medial parapatellar arthrotomy was performed. End-stage arthritis was identified of the medial compartment with significant osteophyte formation and a large area of exposed subchondral bone. Osteotomy of the patella was performed. We drilled holes for the patella. We trialed the patella component. We placed an intramedullary guide into the distal femur. We ultimately resected 13 mm off of the distal femur in 5 degrees of valgus. The remnants of the ACL and PCL were resected. Osteotomy of the proximal tibia was performed, resecting 5 mm off of the medial side. This was done with 3 degrees of posterior slope using an extramedullary guide. The distal end of the guide was placed in the mid aspect of the ankle. The femur was sized, and four chamfer cuts were completed in 3 of external rotation. We then cut the central box in the distal femur to replace the PCL. We resected the remnants of the menisci and removed osteophytes off of the femur and tibia. We then trialed the knee. We punched the tibia for the keel, and then used standard technique to cement in components. Excess cement was removed. We trialed the knee again and the final polyethylene thickness was chosen to provide extension to 0 degrees, and flexion of 140 degrees to gravity. The ligaments were appropriately balanced. Lateral release was necessary to obtain excellent patellofemoral tracking. The tourniquet was released and adequate hemostasis was obtained. An intra- articular injection of a ropivacaine cocktail was injected. The posterior knee was inspected for excess cement, which was removed. The final polyethylene was put into position after thorough irrigation. We then closed deep fascia with a #2 Stratafix followed by skin with 2-0 Vicryl followed by Dermabond dressing. Postop plan is to weight-bear as tolerated. DVT prophylaxis will be performed with SCDs, DUSTIN almaguer, early mobilization, and Lovenox followed by aspirin. Gokul Rangel MD September 11, 2017 10:34
[2017-09-11] MEDS ORDERED: MAGNESIUM HYDROXIDE SUSP 30 ML CUP PO PRN (10:45)
[2017-09-11] MEDS ORDERED: MORPHINE SULFATE 4 MG/ML INJ IV PUSH PRN (10:45)
[2017-09-11] MEDS ORDERED: ZOLPIDEM TARTRATE 5 MG TAB PO PRN (10:45)
[2017-09-11] MEDS ORDERED: ONDANSETRON HCL 4 MG/2 ML VIAL IVP PRN (10:45)
[2017-09-11] MEDS ORDERED: diphenhydrAMINE HCL 50 MG/ML VIAL IV PUSH PRN (10:45)
[2017-09-11] MEDS ORDERED: ACETAMINOPHEN/HYDROcodone 325 MG/5 MG TAB PO PRN (10:45)
[2017-09-11] MEDS ORDERED: BISACODYL 10 MG SUPP RECTAL PRN (10:45)
[2017-09-11] MEDS ORDERED: ALUMINUM/MAGNESIUM/SIMETH 30 ML CUP PO PRN (10:45)
[2017-09-11] MEDS ORDERED: NALOXONE HCL 0.4 MG/ML AMP IV PUSH PRN (10:45)
[2017-09-11] MEDS ORDERED: DO NOT ADM ANY ANTICOAGULANT DRUGS PRN (10:58)
[2017-09-11] MEDS ORDERED: MIDAZOLAM HCL 2 MG/2 ML VIAL ONE (11:17)
--- NOTE | 2017-09-11 11:36 | RADRPT ---
EXAM DATE/TIME: 09/11/2017 11:04 [facility] COMPARISON: No previous studies available for comparison. INDICATIONS : Post op left knee surgery. MEDICAL HISTORY : Diabetes mellitus type 2. Chronic obstructive pulmonary disease. Hypertension. SURGICAL HISTORY : Craniotomy. ENCOUNTER: Initial ACUITY: 1 day PAIN SCORE: Non-responsive. LOCATION: Left knee. FINDINGS: Postsurgical features of left knee arthroplasty. Arthroplasty components are in anatomic alignment. N o significant acute bony fracture. Immediate postsurgical soft tissue features. CONCLUSION: 1. Status post left knee arthroplasty in anatomic alignment without significant acute bony fracture. Brian Hampton MD on September 11, 2017 at 11:33 Board Certified Radiologist. This report was verified electronically.
[2017-09-11] MEDS ORDERED: MORPHINE SULFATE 8 MG/ML INJ ONE (11:37)
[2017-09-11] MEDS ORDERED: *LABETALOL HCL 100 MG/20 ML VIAL PERIprocedural Use ONLY ONE (12:47)
[2017-09-11] MEDS: SODIUM CHLOR 0.9% 1000 ML INJ 1,000 ML IV SCH ×2 (13:00→21:06)
[2017-09-11] MEDS ORDERED: Post-op Orders (for Pharmacy) XX ONE (13:15)
[2017-09-11] MEDS ORDERED: ONDANSETRON HCL 4 MG/2 ML VIAL IV PUSH ONE (15:52)
[2017-09-11] MEDS ORDERED: LABETALOL HCL 100 MG/20 ML VIAL IV ONE (15:52)
[2017-09-11] MEDS ORDERED: LACTATED RINGER'S 1000 ML INJ 1,000 ML IV ONE (15:52)
[2017-09-11] MEDS ORDERED: ePHEDrine/NS 25 MG/5 ML SYRINGE IV ONE (15:52)
[2017-09-11] MEDS ORDERED: GLYCOPYRROLATE 1 MG/5 ML SYRINGE IV PUSH ONE (15:52)
[2017-09-11] MEDS ORDERED: ROCURONIUM INJ 50 MG/5 ML SYRINGE IV PUSH ONE (15:52)
[2017-09-11] MEDS ORDERED: NEOSTIGMINE 5 MG/5 ML SYRINGE IV PUSH ONE (15:52)
[2017-09-11] MEDS ORDERED: PHENYLEPH/NS 1000 MCG/10 ML SYR IV ONE (15:52)
[2017-09-11] MEDS ORDERED: PROPOFOL 200 MG/20 ML AMP IV ONE (15:52)
[2017-09-11 16:30] VITALS: BP 135/65; PULSE 109; RESP 20; TEMP 99.3; O2SAT 95
--- NOTE | 2017-09-11 16:36 | PD.CONS ---
HPI Service [facility] Hospitalists Consult Requested By Dr. Rangel Reason for Consult Post operative medical management Primary Care Physician Benjie Mcnamara MD Diagnoses: History of Present Illness Mr. Velazquez is a 70 y/o male with COPD, diabetes, HTN, hyperlipidemia and hx of sinus tachycardia who presented to the ER at [facility] on 09/11/17 after left total knee arthroplasty with Dr. Rangel. [facility] Hospitalist team was consulted to help with managing the pts chronic medical issues. Pt is seen on POD#0 and is doing well. Pain is currently controlled. Vital signs are stable. Pt is tentatively planned for discharge home with [facility] tomorrow. He denies any chest pain, SOB, palpitations, dizziness, abdominal pain, nausea/vomiting, diarrhea, or headache. Review of Systems Constitutional: DENIES: Fever, Chills, Dizziness Respiratory: DENIES: Cough, Wheezing, Shortness of breath Cardiovascular: DENIES: Chest pain, Palpitations, Dyspnea on Exertion Gastrointestinal: DENIES: Abdominal pain, Constipation, Diarrhea, Nausea, Vomiting Musculoskeletal: COMPLAINS OF: Muscle aches, Joint Swelling, DENIES: Joint pain Neurologic: DENIES: Headache, Speech Problems Psychiatric: DENIES: Anxiety, Confusion, Depression Past Family Social History Past Medical History HTN Sinus tachycardia Hx of syncope and abnormal tilt table test Hyperlipidemia COPD Diabetes mellitus GERD CKD Depression Hx of tobacco use Hx of intracranial bleeding 2D echo (2012) - Normal systolic function with EF 55-60% - PA peak pressure 32mmHg Past Surgical History Craniotomy with clot evacuation Cholecystectomy Bilateral inguinal hernia repair Tonsillectomy Reported Medications Digox (Digoxin) 0.25 Mg Tab 0.25 Mg PO DAILY Potassium Gluconate 595 Mg (99 Mg) Tab 2 Tab PO HS Potassium Gluconate 595 Mg (99 Mg) Tab 3 Tab PO DAILY Coq-10 (Coenzyme Q10 (Ubidecarenone)) 50 Mg Cap 1 Tab PO DAILY Multi Vitamin Daily (Multiple Vitamin) 1 Tab Tab 1 Tab PO DAILY Trazodone (Trazodone HCl) 50 Mg Tab 75 Mg PO HS Prednisone 10 Mg Tab 20 Mg PO DAILY Cefprozil 500 Mg Tab 500 Mg PO BID Diclofenac Sodium DR (Diclofenac Sodium) 75 Mg Tabdr 75 Mg PO BID B Complex (B-Complex Vitamins) 1 Cap 1 Cap PO DAILY Fenofibrate 145 Mg Tab 145 Mg PO DAILY Ipratropium Neb (Ipratropium [place]) 0.5 Mg/2.5 Ml Amp 0.5 Mg NEB BID NEB PRN Metoprolol Tartrate 50 Mg Tab 50 Mg PO BID Valsartan 40 Mg Tab 40 Mg PO HS Tradjenta (Linagliptin) 5 Mg Tab 5 Mg PO DAILY Metformin (Metformin HCl) 1,000 Mg Tab 1,000 Mg PO BIDPC With meals Omeprazole 20 Mg Tab 20 Mg PO DAILY Atorvastatin (Atorvastatin Calcium) 40 Mg Tab 40 Mg PO HS Aspirin DR (Aspirin) 81 Mg Tabdr 81 Mg PO DAILY Allergies: Coded Allergies: No Known Allergies (Verified Allergy, Unknown, 09/11/17) Family History Father from prostate cancer Mother for CHF Social History Hx of tobacco use, smoked 1-1.5ppd x 35 years, quit in 2004 Occasionally drinks alcohol Pt is , lives locally Worked for a car dealership Physical Exam Vital Signs Vital Signs Date Time Temp Pulse Resp B/P (MAP) Pulse Ox O2 Delivery O2 Flow Rate FiO2 09/11/17 11:00 98.1 90 11 154/73 (100) 97 Nasal Cannula 4 09/11/17 06:46 98 Nasal Cannula 2 09/11/17 06:45 74 09/11/17 06:24 98.5 76 20 160/84 (109) 96 Physical Exam GENERAL: This is a well-nourished, well-developed patient, in no apparent distress. SKIN: Post-op dressing dry and intact EYES: Extraocular motions intact. No scleral icterus. No injection or drainage. CARDIOVASCULAR: Regular rate and rhythm RESPIRATORY: Clear to auscultation. Breath sounds equal bilaterally. GASTROINTESTINAL: Abdomen soft, non-tender, nondistended. NEUROLOGICAL: Awake and alert. Motor and sensory grossly within normal limits. Five out of 5 muscle strength in all muscle groups, with the exception of post- operative lower extremity. Normal speech. Imaging Last Impressions Knee X-Ray 09/11/17 1031 Signed Impressions: Service Date/Time: Monday, September 11, 2017 11:04 - CONCLUSION: 1. Status post left knee arthroplasty in anatomic alignment without significant acute bony fracture. Brian Hampton MD Assessment and Plan Problem List: (1) Osteoarthritis ICD Codes: M19.90 - Unspecified osteoarthritis, unspecified site Plan: - Patient is s/p Left total knee arthroplasty 09/[address] Rangel - Post-op pain control per Ortho - PT daily - IS - Constipation precautions - DVT prophylaxis per Ortho Lovenox 40 mg SQ daily x 10 doses - Orthopedic surgery plan for DC 09/12 (2) Diabetes mellitus ICD Codes: E11.9 - Type 2 diabetes mellitus without complications Status: Chronic Plan: Continue patient's home Metformin 1000mg PO BID patient home Tradjenta 5 mg PO daily converted add accu checks ACHS with SSI if needed diabetic diet (3) HTN (hypertension) ICD Codes: I10 - Essential (primary) hypertension Status: Chronic Plan: Continue patient's home metoprolol 50 mg PO BID Valsartan 40 mg PO QHS (4) SVT (supraventricular tachycardia) ICD Codes: I47.1 - Supraventricular tachycardia Status: Acute Plan: Continue patient's home metoprolol 50 mg PO BID and digoxin 0.25 mg daily (5) COPD (chronic obstructive pulmonary disease) ICD Codes: J44.9 - Chronic obstructive pulmonary disease, unspecified Status: Chronic Plan: PFT (09/06/12) which showed moderately severe airway obstruction and FEV1/ FVC 60% predicted. patient does not appear to be in acute exacerbation Ipratropium neb if needed for SOB/Wheezing Problem Qualifiers (1) Osteoarthritis: (2) Diabetes mellitus: Lila Martinez September 11, 2017 16:36
[2017-09-11] MEDS ORDERED: GLUCAGON 1 MG/ML VIAL OTHER PRN (16:45)
[2017-09-11] MEDS ORDERED: DEXTROSE 50% IN WATER 50 ML VIAL(D50) IV PUSH PRN (16:45)
[2017-09-11] MEDS: INSULIN ASPART SUPPLEMENTAL SCALE SQ SCH ×2 (17:00→20:32)
[2017-09-11] MEDS: metFORMIN HCL 500 MG TAB PO SCH (18:10)
[2017-09-11 20:00] VITALS: BP 148/71; PULSE 100; RESP 18; TEMP 98.8; O2SAT 94
[2017-09-11] MEDS: METOPROLOL TARTRATE 50 MG TAB PO SCH (20:31)
[2017-09-11] MEDS ORDERED: POTASSIUM GLUCONATE PO SCH (21:00)
[2017-09-11] MEDS ORDERED: VALSARTAN 40 MG TAB PO SCH (21:00)
[2017-09-11] MEDS ORDERED: traZODone HCL 50 MG TAB PO SCH (21:00)
[2017-09-11] MEDS ORDERED: ATORVASTATIN 40 MG TAB PO SCH (21:00)
[2017-09-12] VITALS: BP 116/58; PULSE 85; RESP 20; TEMP 98.8; O2SAT 94
[2017-09-12 04:00] VITALS: BP 137/70; PULSE 86; RESP 20; TEMP 98.4; O2SAT 95
[2017-09-12] MEDS ORDERED: BENZOCAINE-MENTHOL (SUGAR FREE) 15 MG-3.6 MG LOZENGE BUCCAL PRN (05:00)
[2017-09-12 06:44] LABS: HEMATOCRIT 29.9 % (39.0-51.0); HEMOGLOBIN 9.3 GM/DL (13.0-17.0); MEAN CELL VOLUME 68.8 FL (80.0-100.0); MEAN CORPUSCULAR HEMOGLOBIN 21.4 PG (27.0-34.0); MEAN PLATELET VOLUME 7.5 FL (7.0-11.0); PLATELET COUNT 291 TH/MM3 (150-450); RED BLOOD COUNT 4.34 MIL/MM3 (4.50-5.90); RED CELL DISTRIBUTION WIDTH 17.3 % (11.6-17.2); WHITE BLOOD COUNT 14.2 TH/MM3 (4.0-11.0)
[2017-09-12] MEDS ORDERED: DEXAMETHASONE SOD PHOS 20 MG/5 ML VIAL IV ONE (07:45)
[2017-09-12] MEDS: INSULIN ASPART SUPPLEMENTAL SCALE SQ SCH ×2 (08:00→12:00)
[2017-09-12 08:07] VITALS: BP 139/75; PULSE 82; RESP 20; TEMP 98.5; O2SAT 95
[2017-09-12] MEDS: METOPROLOL TARTRATE 50 MG TAB PO SCH (08:15)
[2017-09-12] MEDS: metFORMIN HCL 500 MG TAB PO SCH (08:15)
[2017-09-12] MEDS: SODIUM CHLOR 0.9% 1000 ML INJ 1,000 ML IV SCH (08:16)
[2017-09-12] MEDS: ACETAMINOPHEN/HYDROcodone 325 MG/5 MG TAB PO PRN ×2 (08:23→12:44)
[2017-09-12] MEDS ORDERED: POTASSIUM GLUCONATE PO SCH (09:00)
[2017-09-12] MEDS ORDERED: FENOFIBRATE 145 MG TAB PO SCH (09:00)
[2017-09-12] MEDS ORDERED: PT OWN MED: TRADJENTA (LINAGLIPTIN) 5MG PO DAILY PO SCH (09:00)
[2017-09-12] MEDS ORDERED: DIGOXIN 0.25 MG TAB PO SCH (09:00)
[2017-09-12] MEDS ORDERED: predniSONE 20 MG TAB PO SCH (09:00)
[2017-09-12] MEDS ORDERED: PANTOPRAZOLE SOD 20 MG DELAYED RELEASE TAB PO SCH (09:00)
[2017-09-12] MEDS ORDERED: ENOXAPARIN SODIUM 40 MG/0.4 ML SYRINGE SQ SCH (10:00)
[2017-09-12 11:39] VITALS: BP 152/87; PULSE 104; RESP 18; TEMP 98.4; O2SAT 94
[2017-09-12] MEDS ORDERED: DOCUSATE SODIUM 100 MG CAP PO SCH (21:00)
[2017-09-12] MEDS ORDERED: CEFUROXIME AXETIL 500 MG TAB PO SCH (21:00)
[2017-09-12] MEDS ORDERED: MULTIVITAMINS/MINERALS THERAPEUTIC TAB PO SCH (21:00)
== END 2017-09-12 15:53 | disposition home health service (06) | DRG 470 ==
LOC: HSDI 05:14 → N06B 15:30
PROVIDERS: ADMIT Orthopaedic Surgery; ATTEND Orthopaedic Surgery
PROC: 3E0T3BZ Introduction of Anesthetic Agent into Peripheral Nerves and Plexi, Percutaneous Approach (ICD-10-PCS; 2017-09-11)
PROC: 0SRD0J9 Replacement of Left Knee Joint with Synthetic Substitute, Cemented, Open Approach (ICD-10-PCS; principal; 2017-09-11 08:13)
DX: M17.12 Unilateral primary osteoarthritis, left knee (principal); E11.22 Type 2 diabetes mellitus with diabetic chronic kidney disease; J44.9 Chronic obstructive pulmonary disease, unspecified; I47.1 Supraventricular tachycardia; N18.9 Chronic kidney disease, unspecified; I12.9 Hypertensive chronic kidney disease with stage 1 through stage 4 chronic kidney disease, or unspecified chronic kidney disease; Z79.84 Long term (current) use of oral hypoglycemic drugs; Z79.899 Other long term (current) drug therapy; Z82.49 Family history of ischemic heart disease and other diseases of the circulatory system; Z87.891 Personal history of nicotine dependence; Z80.42 Family history of malignant neoplasm of prostate; K21.9 Gastro-esophageal reflux disease without esophagitis; E78.5 Hyperlipidemia, unspecified
CPT/HCPCS: 73560; 82948; 85027; 86850; 86900; 86901; 94150; C1776; C9290; J0131; J0690; J0735; J1100; J1580; J1650; J1885; J2250; J2270; J2370; J2405; J2710; J2795; J2930; J3010; J3370; J7030; J7120; J7512; L1830